=== PATIENT | male | born 1995 | race Caucasian/White ===

== ENCOUNTER 2023-10-24 23:37 | Emergency (ER) | payer SELFPAY ==
[2023-10-24 23:39] VITALS: BP 121/96
--- NOTE | 2023-10-25 00:30 | ED.GENMED ---
History of Present Illness
General
Chief Complaint: Skin Surface Trauma
Source: patient
Exam Limitations: none
Time Seen by Provider: 10/24/23 23:46
Nursing documentation reviewed up to this point in time: agreed with
History of Present Illness
History of Present Illness:
28 y/o M
no pmh
here with laceration linear to forehead vertically oriented
2
no surrounding swelling
no headache
no loc
was drinking alcohol
this is the night before his wedding and he is worried about how to cover it for tomorrow
does not want stitches becuase of appearance
no bleeding
Past History
Past History
ED Past Medical History: None
ED Past Surgical History: None
Review of Systems
Review of Systems
Allergies reviewed?: Yes
All Other Systems: Not applicable
Phy Exam
Physical Exam
Physical Exam:
GENERAL: Alert , in no apparent distress
HEAD: linear laceration to left forehead 2 cm
NECK: no midline tenderness, active ROM intact, no paraspinal muscle tenderness;
EYE: pupils equal and reactive, EOMs intact.
NEUROLOGICAL: Alert and oriented, no focal neuro deficits, CN intact, 5/5 strength, sensation intact
SKIN: Warm and dry, linear laceration forehead
PSYCH: Normal and appropriate interaction.
Course
Orders/Labs/Results
Orders:
Orders
10/25/23 00:32
Tetanus/Diphth/Acelpertussis [Adacel] 0.5 ml IM .ONCE ONE
Vital Signs
Initial and Last Documented VS:
Initial Vital Signs
Temp Pulse Resp BP Pulse Ox
98.7 F 92 18 121/96 99
10/24/23 23:39 10/24/23 23:39 10/24/23 23:39 10/24/23 23:39 10/24/23 23:39
Last Documented Vital Signs
Temp Pulse Resp BP Pulse Ox
98.7 F 92 18 121/96 99
10/24/23 23:39 10/24/23 23:39 10/24/23 23:39 10/24/23 23:39 10/24/23 23:39
MDM/Problems Addressed
Differential Diagnosis Includes:
forehead laceration, contusion
MDM/Problems Addressed:
28 y/o M
getting tomororw
facial laceration to forehead from a camera that accidentally got hit in his face
no loc
no vomiting
had some alcohol on board
clinically sober
no hematoma
linear 2 cm laceration vertically oriented to forehead
very slightly open, not deep
discussed options
pt most concerned about covering it for tomorrow and less about cosmesis intermediate
would recommend sutures or sterristrips but pt refused
he requested glue aware that it goes against the lines of tension but he will be most likley about to cover it tomorrow better with glue and would prefer this
tetanus will be updated
*Critical Care Note
Total Time (30-74mins, 75-104mins- exclusive of procedures): Not Applicable
ED Attending Note
-
Portions of this chart may have been created with voice recognition software.� Occasional wrong word or��sound alike� substitutions may have occurred due to the inherent limitations of voice recognition software.
Discharge Plan
Departure
Patient Disposition: Home (Routine Discharge)
Date of Disposition: 10/25/23
Time of Disposition: 00:31
Patient with high blood pressure during this ER visit?: No
Condition: Fair
Covid-19: Not Applicable
Discharge Problem:
Laceration of face
Instructions: Laceration Repair With Glue (DC)
Referrals:
NONE,* [Family Provider] -
Activity Restrictions/Additional Instructions:
KEEP THE WOUND CLEAN AND DRY FOR 48 HOURS IF POSSIBLE
KEEP ALSO OUT OF THE SUN OR WEAR A HAT TO AVOID SCARRING
RETURN FOR ANY CONCERNS
Interventions
Interventions:
*Risk Screen - Suicide Last Done: 10/24/23 23:39
*General Assessment Last Done: 10/24/23 23:39
*Neglect/Abuse Screening Last Done: 10/24/23 23:39
Discharge Date and Time
Print Language: BULGARIAN
[2023-10-25] MEDS: ADACEL 0.5 ML IM (00:39)
[2023-10-25 00:40] VITALS: BP 105/72
== END 2023-10-25 00:45 | disposition home or self-care (01) ==
LOC: EMR 23:37
PROVIDERS: EMERGENCY PHYSICIAN Emergency Medicine
DX: S01.81XA Laceration without foreign body of other part of head, initial encounter (principal); X58.XXXA Exposure to other specified factors, initial encounter; Z23 Encounter for immunization
CPT/HCPCS: 99283; 90471; 90715